=== PATIENT | male | born 1980 ===

== ENCOUNTER 2019-11-08 03:14 | Emergency (ER) | payer OTHER ==
[~2019-11-08] VITALS: Ht 185.4 cm; Wt 104.3 kg
[~2019-11-08 03:14] MED LIST: ALBU90OI INH; AMOX500 PO; AZIT250 PO; BENZ100A PO; Bactrim Ds Tab1 EACH PO; CEPH500 PO; CETI10 PO; CODGUAEL PO; CRUTCH3 XX; DIPH50 PO; ERYSTE250 PO; GENT.3OPSA OS; HYDACE5 PO; HYDR1TAB94 PO; IBUP600 PO; IBUP800; IBUP800 PO; OMEP20ER PO; OXYACE7.5T PO; PENVK500 PO; PROM25 PO; Percocet 5-3251 EACH PO; RXHYDACE PO; RXOXYACE PO; RXPENVK250 PO; TRAM50 PO
[2019-11-08] MEDS ORDERED: Zithromax250 MG PO (04:48)
== END 2019-11-08 05:06 | disposition home or self-care (01) ==
LOC: ER 03:14
DX: S50.02XA Contusion of left elbow, initial encounter (principal); R05 Cough; F17.210 Nicotine dependence, cigarettes, uncomplicated; Z91.048 Other nonmedicinal substance allergy status; W21.03XA Struck by baseball, initial encounter
CPT/HCPCS: 71046; 73080; 96372; 99283-25; J1885

== ENCOUNTER → 2023-02-01 | Outpatient (CLI) | payer OTHER ==
[~2023-02-01] MED LIST changes: +Zithromax250 MG PO
== END ==
LOC: LAB 15:08 → LAB SHORT 15:08
DX: L98.9 Disorder of the skin and subcutaneous tissue, unspecified (principal)
CPT/HCPCS: 87070; 87075; 87147; 87205

== ENCOUNTER 2023-04-26 05:22 | Emergency (ER) | payer OTHER ==
[~2023-04-26] VITALS: Ht 185.4 cm; Wt 99.8 kg
[2023-04-26 06:33] VITALS: BP 142/92
== END 2023-04-26 06:33 | disposition home or self-care (01) ==
LOC: ER 05:22
DX: S21.241A Puncture wound with foreign body of right back wall of thorax without penetration into thoracic cavity, initial encounter (principal); L24.5 Irritant contact dermatitis due to other chemical products; F17.210 Nicotine dependence, cigarettes, uncomplicated; X95.01XA Assault by airgun discharge, initial encounter; Z91.09 Other allergy status, other than to drugs and biological substances
CPT/HCPCS: 99283

== ENCOUNTER 2023-07-04 21:38 | Emergency (ER) | payer OTHER ==
[~2023-07-04] VITALS: Ht 185.4 cm; Wt 99.8 kg
[2023-07-04] MEDS ORDERED: Ketorolac Tromethamine 10 MG Tab PO ONE (22:20)
[2023-07-04] MEDS ORDERED: Acetaminophen 500 MG Tab PO ONE (22:25)
[2023-07-04 23:14] VITALS: BP 152/87
[2023-07-04] MEDS ORDERED: Ketorolac Tromethamine 15mg Vial IV ONE (23:30)
[2023-07-04] MEDS ORDERED: Trimethoprim/Sulfamethoxazole DS Tab PO ONE (23:30)
[2023-07-04] MEDS ORDERED: Cephalexin Monohydrate 500 MG Cap PO ONE (23:35)
[2023-07-04] MEDS ORDERED: BACTRIM DS TAB1 EAC1 PO (23:44)
[2023-07-04] MEDS ORDERED: CEPH500 PO (23:44)
== END 2023-07-04 23:56 | disposition home or self-care (01) ==
LOC: ER 21:38
DX: L03.312 Cellulitis of back [any part except buttock and flank] (principal); F17.210 Nicotine dependence, cigarettes, uncomplicated; Z91.048 Other nonmedicinal substance allergy status
CPT/HCPCS: 96374; 99282-25; A9270; J1885